=== PATIENT | female | born 1970 | race African-American/Black ===

== ENCOUNTER 2020-06-17 09:59 | Emergency (ER) | payer SELFPAY ==
--- NOTE | 2020-06-17 10:10 | EDM.PDOC ---
ED HPI GENERAL MEDICAL PROBLEM - General Chief Complaint: General Stated Complaint: ALLERGIC REACTION Time Seen by Provider: 06/17/20 10:10 Source of Information: Reports: Patient History Limitations: Reports: No Limitations - History of Present Illness INITIAL COMMENTS - FREE TEXT/NARRATIVE: HISTORY AND PHYSICAL: History of present illness: Patient is a 49-year-old female who presents to the emergency room with complaints of redness, warmth, tenderness and swelling to the left lower jaw. Initially she was concerned she may be having an allergic reaction as she had cod mixed with crab meat on Wednesday. This is when she noticed her symptoms first develop. She denies any injury, trauma or falls. She denies any airway involvement. She is able to speak freely, swallow saliva/food/liquids and has no difficulty with breathing/respirations. She has not used any [id number] medications for this. She states she has had dental abscesses in the past and is slightly tender to the lower left jawline where there is swelling but the main tenderness is between the left lower jaw and jaw line. She has no lymphadenopathy, fever, chills, headache, change in vision, syncope or near syncope. Denies any chest pain, back pain, shortness of breath or cough. Denies any GI or symptoms. Patient has been eating and drinking appropriately. Review of systems: As per history of present illness and below otherwise all systems reviewed and negative. Past medical history: As per history of present illness and as reviewed below otherwise noncontributory. Surgical history: As per history of present illness and as reviewed below otherwise noncontributory. Social history: See social history for further information Family history: As per history of present illness and as reviewed below otherwise noncontributory. Physical exam: General: Well developed and well nourished 49-year-old -[place] female. Alert and orientated x 3. Nontoxic in appearance and in no acute distress. Vital signs are stable and have been reviewed by me. Nursing notes were reviewed. HEENT: Atraumatic, normocephalic, pupils equal and reactive bilaterally, negative for conjunctival pallor or scleral icterus, mucous membranes moist, TMs normal bilaterally, throat clear, neck supple, nontender, trachea midline. She does have soft tissue swelling, warmth and mild redness just above the left lower jaw and below the lip. Teeth are intact without any exquisite tenderness or redness along the gumline. She has no drooling or trismus noted. No meningeal signs. No hot potato voice noted. Lungs: Clear to auscultation bilaterally. No wheezes, rales, or rhonchi. Chest nontender. Normal work of breathing, no accessory muscles used. Heart: S1S2, regular rate and rhythm without overt murmur, gallops, or rubs. No JVD. No peripheral edema Skin: Soft tissue swelling, warmth and mild redness just above the left lower jaw and below the lip.tender to touch. Remaining skin is intact, warm, dry. No lesions or rashes noted. Hematologic: No petechiae or purpra. Mucosa appropriate color and normal nail bed color and refill. Extremities: Atraumatic, moves all extremities per self without difficulty or deficits, negative for cords or calf pain. Neurovascular unremarkable. Neuro: Awake, alert, oriented. Cranial nerves II through XII unremarkable. Cerebellum unremarkable. Motor and sensory unremarkable throughout. Exam nonfocal. Psychiatric: Mood and affect are appropriate. Normal thought process. Answering questions appropriately. Notes: *This patient was seen and evaluated during the 2019 SARS-CoV-2 novel coronavirus pandemic period. Community viral transmission is ongoing at time of this encounter and the emergency department is operating under pandemic response procedures. Patient appears to have a facial cellulitis. May be from dental source though she has mild tenderness along the left lower posterior gumline, although there is no obvious redness or abscess noted. Does not appear to be any type of allergic reaction as the patient initially thought this was from the fish she ate on Wednesday. The facial cellulitis appears nontoxic in appearance, although we did discuss in great detail signs and symptoms that would prompt her to return to the emergency room. I have talked with the patient about today's findings, in addition to providing specific details for plan of care. Reassessment at the time of disposition demonstrates that the patient is in no acute distress. The patient is stable for discharge and counseling was provided. Medication, follow up and supportive care measures were reviewed and discussed. Voices understanding and is agreeable to plan of care. Denies any further questions or concerns at this time. Diagnostics: None Therapeutics: Solu-Medrol, Toradol, Keflex Prescription: Keflex, tramadol Impression: Facial Cellulitis Plan: 1. You were evaluated today on an emergent basis. Recommended to suck on lemon drops or tart candies to promote salivation. Take antibiotic as directed 2. You can alternate Tylenol and ibuprofen as needed for pain and fever management. 3. We encourage you to follow up with your primary care provider and/or recommended specialist in the next few days for re-evaluation and further care/management. 4. If your symptoms should worsen, new symptoms develop or any of the signs and symptoms we discussed should arise please return to the emergency room or call 911 (if needed). Definitive disposition and diagnosis as appropriate pending reevaluation and review of above. - Related Data Allergies Allergy/AdvReac Type Severity Reaction Status Date / Time No Known Allergies Allergy Verified 06/17/20 10:19 Home Meds: Home Meds cephALEXin [Keflex] 500 mg PO TID 5 Days #15 cap 06/17/20 [Rx] traMADol [Ultram] 50 mg PO Q4H PRN #15 tab 06/17/20 [Rx] ED ROS GENERAL - Review of Systems Review Of Systems: Comprehensive ROS is negative, except as noted in HPI. ED EXAM, GENERAL - Physical Exam Exam: See Below (See dictation) Course - Vital Signs Last Recorded V/S: Last Vital Signs Temp 95.9 F L 06/17/20 10:20 Pulse 101 H 06/17/20 10:20 Resp 17 06/17/20 10:20 BP 145/94 H 06/17/20 10:20 Pulse Ox 98 06/17/20 10:20 - Orders/Labs/Meds Meds: Medications Discontinued Medications Generic Name Dose Route Start Last Admin Trade Name Freq PRN Reason Stop Dose Admin Cephalexin 500 mg 06/17/20 10:24 Cephalexin 500 Mg Cap PO 06/17/20 10:25 ONETIME ONE Ketorolac Tromethamine 60 mg 06/17/20 10:22 Ketorolac 60 Mg/2 Ml Sdv IM 06/17/20 10:23 ONETIME ONE Methylprednisolone Sodium Succinate 125 mg 06/17/20 10:22 Methylprednisolone Sodium Succinate 125 Mg/2 Ml Sdv IM 06/17/20 10:23 ONETIME ONE Departure - Departure Time of Disposition: 10:30 Disposition: Home, Self-Care 01 Clinical Impression: Facial cellulitis - Discharge Information Prescriptions: cephALEXin [Keflex] 500 mg PO TID 5 Days #15 cap traMADol [Ultram] 50 mg PO Q4H PRN #15 tab PRN Reason: Pain Instructions: Cellulitis, Adult, [id number] Referrals: PCP,None [Primary Care Provider] - Forms: ED Department Discharge Additional Instructions: The following information is given to patients seen in the emergency department who are being discharged to home. This information is to outline your options for follow-up care. We provide all patients seen in our emergency department with a follow-up referral. The need for follow-up, as well as the timing and circumstances, are variable depending upon the specifics of your emergency department visit. If you don't have a primary care physician on staff, we will provide you with a referral. We always advise you to contact your personal physician following an emergency department visit to inform them of the circumstance of the visit and for follow-up with them and/or the need for any referrals to a consulting specialist. The emergency department will also refer you to a specialist when appropriate. This referral assures that you have the opportunity for follow-up care with a specialist. All of these measure are taken in an effort to provide you with optimal care, which includes your follow-up. Under all circumstances we always encourage you to contact your private physician who remains a resource for coordinating your care. When calling for follow-up care, please make the office aware that this follow-up is from your recent emergency room visit. If for any reason you are refused follow-up, please contact the [facility] Emergency Department at and asked to speak to the emergency department charge nurse. [facility] [address] [place] [id number] [address] [id number] Thank you for choosing the [facility] emergency department in [place] for your medical needs today. It was a pleasure caring for you. Today you were seen in the emergency department for facial redness and swelling. 1. You were evaluated today on an emergent basis. Recommended to suck on lemon drops or tart candies to promote salivation. Take antibiotic as directed 2. You can alternate Tylenol and ibuprofen as needed for pain and fever m anagement. 3. We encourage you to follow up with your primary care provider and/or recommended specialist in the next few days for re-evaluation and further care/management. 4. If your symptoms should worsen, new symptoms develop or any of the signs and symptoms we discussed should arise please return to the emergency room or call 911 (if needed). Sepsis Event Note (ED) - Focused Exam Vital Signs: Vital Signs Temp Pulse Resp BP Pulse Ox 06/17/20 10:20 95.9 F L 101 H 17 145/94 H 98
[2020-06-17] MEDS ORDERED: Ketorolac 60 MG/2 ML SDV IM ONE (10:22)
[2020-06-17] MEDS ORDERED: methylPREDNISolone Sodium Succinate 125 MG/2 ML SDV IM ONE (10:22)
[2020-06-17] MEDS ORDERED: Cephalexin 500 MG Cap PO ONE (10:24)
== END 2020-06-17 11:09 | disposition home or self-care (01) ==
LOC: MW.ED 09:59
DX: L03.211 Cellulitis of face (principal)
CPT/HCPCS: 96372; 99283; A9270; J1885; J2930

== ENCOUNTER 2024-08-29 09:51 | Emergency (ER) | payer BC ==
[2024-08-29 10:48] LABS: BASOPHILS ABSOLUTE AUTO 0.03 K/uL (0.00-0.20); BASOPHILS PERCENT AUTO 0.4 % (0.0-1.0); EOSINOPHILS ABSOLUTE AUTO 0.09 K/uL (0.00-0.45); EOSINOPHILS PERCENT AUTO 1.1 % (0.0-6.0); IMMATURE GRAN ABSOLUTE AUTO 0.02 K/uL (0.00-0.05); IMMATURE GRAN PERCENT AUTO 0.2 % (0.0-0.4); LYMPHOCYTES ABSOLUTE AUTO 1.69 K/uL (1.00-4.80); LYMPHOCYTES PERCENT AUTO 20.5 % (24.0-44.0); MEAN PLATELET VOLUME 10.1 fL (9.4-12.3); MONOCYTES ABSOLUTE AUTO 0.62 K/uL (0.00-0.80); MONOCYTES PERCENT AUTO 7.5 % (0.0-8.0); NEUTROPHILS ABSOLUTE AUTO 5.81 K/uL (1.80-7.70); NEUTROPHILS PERCENT AUTO 70.3 % (41.0-71.0); NRBC ABSOLUTE 0.00 K/uL (0.00-0.02); NRBC PERCENT 0.0 /100WBC (0.0-0.2); PLATELET COUNT,PLT 288 K/uL (150-400); RED BLOOD CELL COUNT 4.25 M/uL (4.10-5.30); WHITE BLOOD CELL COUNT,WBC 8.26 K/uL (3.9-11.3)
[2024-08-29 11:21] LABS: INR < 0.93 (0.86-1.11); PTT,PARTIAL THROMBOPLSTIN TIME 21.7 SEC (23.9-30.7)
[2024-08-29 11:24] LABS: LACTIC ACID 0.8 mmol/L (0.4-2.0)
[2024-08-29 11:28] LABS: A/G RATIO 1.0 (0.9-1.6); ALANINE AMINOTRANSFERASE,ALT 22.0 IU/L (14-63); ASPARTATE AMNIOTRANSFERASE,AST 18.0 IU/L (15-37); BILIRUBIN TOTAL 0.4 mg/dL (0.2-1.0); BLOOD UREA NITROGEN,BUN 12.0 mg/dL (7.0-18.0); CARBON DIOXIDE,CO2 26.3 mmol/L (21.0-32.0); CHLORIDE,CL 97.0 mmol/L (98-107); CREATININE 0.8 mg/dL (0.6-1.0); EST CRCL DRUG DOSING (CG) 68.05 mL/min; GLUCOSE RANDOM 388.0 mg/dL (74-106); POTASSIUM,K 3.7 mmol/L (3.5-5.1); PRO B-TYPE NATRIUR PEPT,BNPPRO 122.0 pg/mL (0-125); PROTEIN TOTAL,TP 6.6 g/dL (6.4-8.2); SODIUM,NA 134.0 mmol/L (136-145)
[2024-08-29 11:30] LABS: ESTIMATED GFR 89.0 mL/min (>60)
[2024-08-29 12:18] LABS: TSH ULTRASENSITIVE 1.54 uIU/mL (0.36-3.74)
== END 2024-08-29 12:47 | disposition home or self-care (01) ==
LOC: MW.ED 09:51
DX: I77.6 Arteritis, unspecified (principal); R73.9 Hyperglycemia, unspecified; Z75.3 Unavailability and inaccessibility of health-care facilities
CPT/HCPCS: 36415; 80053; 83605; 83690; 83735; 83880; 84443; 85025; 85610; 85652; 85730; 86140; 96374; 99283; J1308